=== PATIENT | female | born 2000 | race Caucasian/White ===

== ENCOUNTER 2024-10-28 22:20 | Emergency (ER) | payer BC ==
[2024-10-28] MEDS ORDERED: Famotidine/PF 20 mg/2ml Vial ONE (22:34)
== END 2024-10-29 02:00 | disposition home or self-care (01) ==
LOC: CSHERS 22:20
DX: T78.1XXA Other adverse food reactions, not elsewhere classified, initial encounter (principal); Z55.6 Problems related to health literacy
CPT/HCPCS: 96374; 96375; J1308; J2919